=== PATIENT | female | born 1935 | race Caucasian/White ===

== ENCOUNTER 2022-01-14 19:27 | Inpatient (IN) | payer OTHER ==
[~2022-01-14] VITALS: Ht 157.5 cm; Wt 47.6 kg
--- NOTE | 2022-01-14 19:53 | NUR ---
PATIENT IS RECIEVED SAYING THAT SHE HAS BEEN HAVING DRY COUGHS AND FEVERS FOR A WEEK. PATIENT HAS BEEN EXPOSED TO MYCOPLASMA.
[2022-01-14] MEDS ORDERED: ELIQUIS2.5 MG (20:20)
--- NOTE | 2022-01-14 21:02 | NUR ---
PACIENTE EVALUADA POR LA [place] QUIEN ORDENA [place] MED[place]. SE ORIENTA A PACIENTE Y FAMILIAR SOBRE EL MISMO REFIERE ENTENDER Y RN S MANUELITO EJECUTA ORDENES MEDICAS. SE CATETERIZA A PACIENTE BAJO MEDIDAS ASEPTICAS Y ESTERILES Y SE COLECTA MUESTRA DE U/A.
--- NOTE | 2022-01-15 01:25 | NUR ---
2330- SE RECIBE FEMINA ALERTA Y ORIENTADA X 3 ESFERAS EN CAMA CON BARANDAS ELEVADAS POR SEGURIDAD DEL TURNO ANTERIOR EN LA UNIDAD DE DOLOR DE PECHO. PRESENTANDO BUEN PATRON RESPIRATORIO. AL MOMENTO PTE NO REFIERE DOLOR. H/L EN ANTEBRAZO DERECHO EL CUAL SE ENCUENTRA NATALIA DE EDEMA Y ERITEMA. SONDA URINARIA DRENANDO A GRAVEDAD 1000 ML DE ORINA COLOR AMARILLO LARISSA. SE EDUCA SOBRE CONTINUIDAD DE [place] MEDICO LA MISMA REFIERE COMPRENDER. SE MANTIENE EN OBSERVACION POR CAMBIOS. PENDIENTE CONSULTA CON .
--- NOTE | 2022-01-15 02:21 | NUR ---
MR.ROHENA YENIFER ROBERTO.
[2022-01-17] MEDS ORDERED: HYDROCHLOROTH12.5 MG (11:42)
[2022-01-17] MEDS ORDERED: LEVOTHYROXINE88 MCG (11:42)
[2022-01-17] MEDS ORDERED: CARVEDILOL6.25 M1 (11:42)
[2022-01-17] MEDS ORDERED: FAMOTIDINE20 MG (11:42)
[2022-01-17] MEDS ORDERED: GABAPENTIN400 MG (11:42)
[2022-01-17] MEDS ORDERED: FLONASE16 GM (11:42)
[2022-01-17] MEDS ORDERED: SSD25 GM (11:43)
[2022-01-17] MEDS ORDERED: CETIRIZINE HCL10 MG (11:43)
[2022-01-17] MEDS ORDERED: OMEPRAZOLE40 MG (11:43)
[2022-01-17] MEDS ORDERED: VITAMIN D3250 MCG (11:43)
== END 2022-01-23 14:38 | disposition home or self-care (01) | DRG 177 ==
LOC: ER 19:27 → MEDJ 01-15 09:07
PROVIDERS: ADMIT Internal Medicine; ATTEND Internal Medicine
PROC: BW2410Z Computerized Tomography (CT Scan) of Chest and Abdomen using Low Osmolar Contrast, Unenhanced and Enhanced (ICD-10-PCS; principal; 2022-01-15)
PROC: B246YZZ Ultrasonography of Right and Left Heart using Other Contrast (ICD-10-PCS; 2022-01-15)
PROC: 8E0ZXY6 Isolation (ICD-10-PCS; 2022-01-15)
DX: J69.0 Pneumonitis due to inhalation of food and vomit (principal); L89.153 Pressure ulcer of sacral region, stage 3; I50.33 Acute on chronic diastolic (congestive) heart failure; J10.08 Influenza due to other identified influenza virus with other specified pneumonia; D64.9 Anemia, unspecified; I11.0 Hypertensive heart disease with heart failure; E03.8 Other specified hypothyroidism; K44.9 Diaphragmatic hernia without obstruction or gangrene; K21.00 Gastro-esophageal reflux disease with esophagitis, without bleeding; B95.61 Methicillin susceptible Staphylococcus aureus infection as the cause of diseases classified elsewhere; B96.1 Klebsiella pneumoniae [K. pneumoniae] as the cause of diseases classified elsewhere; B96.4 Proteus (mirabilis) (morganii) as the cause of diseases classified elsewhere; B96.89 Other specified bacterial agents as the cause of diseases classified elsewhere; Z20.822 Contact with and (suspected) exposure to COVID-19